=== PATIENT | male | born 1965 | race African-American/Black ===

== ENCOUNTER → 2018-05-24 | Outpatient (REF) | payer OTHER, MEDICAID ==
[2018-05-25 13:07] LABS: CHLAMYDIA DNA AMPLIFICATION NEGATIVE (NEGATIVE); GC DNA AMPLIFICATION NEGATIVE (NEGATIVE)
== END ==
LOC: M SFHCLERA 19:54
DX: M54.9 Dorsalgia, unspecified (principal)
CPT/HCPCS: 87186